=== PATIENT | female | born 2000 | race African-American/Black ===

== ENCOUNTER 2020-11-30 14:00 | Emergency (ER) | payer BC, SELFPAY ==
--- NOTE | ~2020-11-30 | CT_ITS ---
EXAMINATION: CT abdomen pelvis w con DATE: 11/30/2020 17:35 INDICATION: Right lower quadrant abdominal pain. TECHNIQUE: Computed tomography (CT) of the abdomen and pelvis was performed with 100 mL Omnipaque 350 intravenous contrast. Automated exposure control and iterative reconstruction technique were employe d. The dose-length product was 332.33 mGy-cm. COMPARISON: None. FINDINGS: The visualized portions of the lung bases are clear without pneumonia or pleural effusion. The heart size is normal. No pericardial effusion. The liver, gallbladder, spleen, pancreas, adrenal glands, and kidneys are normal. There are no dilated loops of bowel. The appendix is normal. There is a physiologic volume of fluid in the pelvis. There are no pathologically enlarged lymph nodes. There is a dominant follicle in right ovary. The bones are unremarkable. IMPRESSION: 1. No specific etiology for the patient's symptoms. Reviewed, dictated and finalized at location A.
[2020-11-30 14:07] VITALS: BP 117/75; PULSE 71; RESP 18; TEMP 36.4; O2SAT 100
[2020-11-30 14:21] LABS: Basophils Absolute Auto 0.1 K/mm3 (0.0-0.1); Basophils Percent Auto 0.8 % (0.2-1.2); Eosinophils Absolute Auto 0.3 K/mm3 (0-0.3); Eosinophils Percent Auto 4.3 % (0-4.4); Hematocrit 36.2 % (37.0-47.0); Hemoglobin 10.9 g/dL (12.0-15.0); Immature Granulocyte Absolute 0.02 K/mm3 (0.00-0.031); Immature Granulocyte Percent A 0.3 % (0-0.5); Lymphocytes Absolute Auto 1.94 K/mm3 (0.9-3.2); Lymphocytes Percent Auto 29.8 % (18.3-44.2); Mean Corpuscular HGB Conc 30.1 g/dl (32-36); Mean Corpuscular Hemoglobin 23.1 pg (26-34); Mean Corpuscular Volume 76.7 fl (80-100); Mean Platelet Volume 10.2 fl (7.4-10.4); Monocytes Absolute Auto 0.7 K/mm3 (0.1-0.6); Neutrophils Absolute Auto 3.6 K/mm3 (1.3-6.7); Neutrophils Percent Auto 54.8 % (45.5-73.1); Platelet Count Result 384 k/mm3 (150-375); Red Blood Count 4.72 M/mm3 (4.2-5.4); Red Cell Distribution Width 16.1 % (11.5-14.5); White Blood Count 6.5 K/mm3 (4.5-10.0)
[2020-11-30 14:35] LABS: Alanine Aminotransferase 9 U/L (4-35); Albumin Level 4.5 g/dL (3.5-5.1); Alkaline Phosphatase 80 U/L (38-126); Anion Gap 6 mmol/L (8-16); Aspartate Amino Transferase 22 U/L (14-36); Bilirubin,Total 0.5 mg/dL (0.2-1.3); Blood Urea Nitrogen 9 mg/dL (7-17); Calcium 9.4 mg/dL (8.4-10.2); Carbon Dioxide 27 mmol/L (22-30); Chloride 104 mmol/L (98-107); Estimated CRCL calculation 114 ml/min; Estimated Glomerular Filt Rate > 60; Glucose 102 mg/dL (65-110); Lipase 32 U/L (23-300); Potassium 3.8 mmol/L (3.4-5.0); Sodium 137 mmol/L (137-145)
[2020-11-30 14:39] LABS: Add Urine Microscopic? YES; Appearance Urine Clear (Clear); Bacteria Urine Trace /hpf; Bilirubin Urine Negative (Negative); Blood Urine Negative (Negative); Color Urine Yellow (Yellow); Glucose Urine UA Negative (Negative); Ketones Urine Negative (Negative); Leukocyte Esterase Ur Negative LEU/UL (Negative); Mucus Urine Few /lpf; Nitrate Urine Negative (Negative); Protein Urine 1+ mg/dL (Negative); Specific Grav Ur 1.024 (1.001-1.035); Squamous Epithelial Cell Urine Few /hpf (Few); WBC Urine 0-3 /hpf
--- NOTE | 2020-11-30 16:45 | ED.ABDPAIN ---
HPI - Abdominal Pain General Chief Complaint: Abdominal Pain Stated Complaint: vomiting Time Seen by Provider: 11/30/20 16:36 Source: patient Mode of arrival: ambulatory Limitations: no limitations History of Present Illness HPI narrative: This is a 20 year female that presents to the ER for nausea and vomiting. Reports she had several episodes of nausea and vomiting this morning. Reports she was evaluated at urgent care for this. Noted to have right lower quadrant tenderness, so sent to the ED for further evaluation. Does report intermittent sharp pains in the right lower quadrant. Denies fever, dysuria, hematuria, diarrhea, or hematochezia. Related Data Home Medications Medication Instructions Recorded Confirmed No Home Medications 11/30/20 11/30/20 Allergies Allergy/AdvReac Type Severity Reaction Status Date / Time No Known Allergies Allergy Verified 11/30/20 16:40 Review of Systems Review of Systems: CONSTITUTIONAL: Denies fever GASTROINTESTINAL: Reports abdominal pain, nausea, vomiting. Denies diarrhea. GENITOURINARY: Denies dysuria or hematuria. All systems reviewed & are unremarkable except as noted in HPI and below PMFSH Past Medical History Medical History (Updated 11/30/20 @ 18:30 by Barbra Farley PA-C) No active medical problems Social History Social History (Updated 11/30/20 @ 16:49 by Barbra Farley PA-C) Substance use: never Exam Narrative: GENERAL: Well-appearing, well-nourished, and in no acute distress. HEAD: Normocephalic, atraumatic. EYES: EOMI. CHEST: Clear to auscultation. No respiratory distress. No wheezes rales or rhonchi HEART: Regular rate and rhythm. No murmur heard. Normal peripheral pulses. ABDOMEN: Soft, nondistended, normal active bowel sounds. Tender to palpation in the RLQ, without guarding. No CVA tenderness EXTREMITIES: Normal range of motion. No edema. SKIN: Warm, dry, no rash. NEURO: No focal deficits. Alert and oriented x3. PSYCH: Normal mood and affect Course Vital Signs Vital signs: Vital Signs Temperature 97.6 F 11/30/20 14:07 Pulse Rate 71 11/30/20 14:07 Respiratory Rate 18 11/30/20 14:07 Blood Pressure 117/75 11/30/20 14:07 Pulse Oximetry 100 11/30/20 14:07 Temperature 97.6 F 11/30/20 14:07 Pulse Rate 71 11/30/20 14:07 Respiratory Rate 18 11/30/20 14:07 Blood Pressure 117/75 11/30/20 14:07 Pulse Oximetry 100 11/30/20 14:07 MDM - Abdominal Pain MDM Narrative Medical decision making narrative: Patient presents the emergency department for right lower quadrant abdominal pain, nausea and vomiting. She is afebrile and nontoxic-appearing. Her vitals are stable. CBC is without leukocytosis. Does show microcytic anemia with hemoglobin of 10.9. Metabolic panel and lipase without concerning findings. UA without evidence of infection. Bedside test negative. CT scan of the abdomen and pelvis is without acute findings. Patient was updated on case findings. Patient reports relief after IV Tylenol and fluids. She is stable and felt appropriate for further outpatient evaluation. She was given warnings to return the ER Lab Data Attestation: I reviewed the patient's lab results. Result diagrams: 11/30/20 14:13 11/30/20 14:13 Labs: Lab Results 11/30/20 11/30/20 11/30/20 Range/Units 14:13 14:13 14:17 WBC 6.5 (4.5-10.0) K/mm3 RBC 4.72 (4.2-5.4) M/mm3 Hgb 10.9 L (12.0-15.0) g/dL Hct 36.2 L (37.0-47.0) % MCV 76.7 L (80-100) fl MCH 23.1 L (26-34) pg MCHC 30.1 L (32-36) g/dl RDW 16.1 H (11.5-14.5) % Plt Count 384 H (150-375) k/mm3 MPV 10.2 (7.4-10.4) fl Immature Gran % (Auto) 0.3 (0-0.5) % Neut % (Auto) 54.8 (45.5-73.1) % Lymph % (Auto) 29.8 (18.3-44.2) % [place]oun % (Auto) 10.0 H (2.6-8.5) % Eos % (Auto) 4.3 (0-4.4) % Baso % (Auto) 0.8 (0.2-1.2) % Lymph # (Auto) 1.94 (0.9-3.2) K/mm3 [place]oun
[2020-11-30] MEDS: SODIUM CHLORIDE 0.9% IV 1,000 ML 999 ML IV CONT (17:47)
[2020-11-30 18:52] VITALS: BP 112/82; PULSE 70; RESP 20; O2SAT 100
== END 2020-11-30 18:53 | disposition home or self-care (01) ==
PROVIDERS: Emergency Provider Emergency Medicine
DX: R10.31 Right lower quadrant pain (principal)
CPT/HCPCS: 36415; 74177; 80053; 81001; 81025; 83690; 85025; 96361; 96374; 99284; J0131; J7030; Q9967

== ENCOUNTER 2022-01-03 17:38 | Emergency (ER) | payer BC, SELFPAY ==
[2022-01-03 17:40] VITALS: BP 125/85; PULSE 105; RESP 18; TEMP 36.7; O2SAT 100
--- NOTE | 2022-01-03 18:01 | ED.PREGNANCY ---
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 She first noticed the lesion about a week ago, since then it has been growing in size and becoming more tender. She was seen at urgent care facility, was told the lesion was too small to drain, and she was placed on Augmentin 3 days ago. States the area has grown and become more tender despite compliance with antibiotics. She denies any fevers or chills. States that she has a history of Bartholin cysts, has had them drained in the past, most recently 1 year ago. 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 Denies any fevers or chills, nausea or vomiting. She is not and denies chance of . Related Data Allergies Allergy/AdvReac Type Severity Reaction Status Date / Time No Known Allergies Allergy Verified 11/30/20 16:40 Review of Systems Review of Systems: Gen: Denies fevers or chills Eyes: Denies eye pain or visual change ENT: Denies congestion Respiratory: Denies shortness of breath or cough CV: Denies chest pain or palpitations GI: Denies abdominal pain nausea, emesis or diarrhea reports pain and swelling to right labia. Denies burning, urgency, frequency or hematuria Musculoskeletal: Denies back pain or muscle pain Neuro: Denies numbness, tingling, weakness or focal weakness Skin: Denies rash Except as documented, all other systems reviewed and negative PMFSH Past Medical History Medical History No active medical problems Social History Social History (Updated 11/30/20 @ 16:49 by Barbra Farley PA-C) Substance use: never Exam Narrative: APPEARANCE: Well appearing, no pain in distress, well-nourished. Head: Normocephalic and atraumatic. EYES: PERRLA/EOMI, conjunctivae clear NOSE: No nasal drainage EARS: External ear normal in appearance THROAT: Oropharynx is clear. Mucous membranes are moist. NECK: Supple. No adenopathy, no masses. RESPIRATORY: Airway patent, respirations nonlabored. Clear to auscultation bilaterally, no rales, rhonchi, wheezing. CARDIOVASCULAR: Regular rate and rhythm without murmurs, rubs, or gallops. ABDOMINAL: Normoactive bowel sounds. Soft, nontender, nondistended. No rebound tenderness or guarding. MUSCULOSKELETAL: Extremities are warm and well-perfused. Moves all extremities well. No edema. NEURO: Normal speech. No focal neurologic deficits. SKIN: Patient has a 3 x 4 cm area of fluctuance to her right labia majora at the 8 o'clock position that is tender to palpation. PSYCHIATRIC: Normal affect/mood. Course Vital Signs Vital signs: Vital Signs Temperature 98.0 F 01/03/22 17:40 Pulse Rate 105 H 01/03/22 17:40 Respiratory Rate 18 01/03/22 17:40 Blood Pressure 125/85 01/03/22 17:40 Pulse Oximetry 100 01/03/22 17:40 Oxygen Delivery Room Air 01/03/22 17:40 Temperature 98.0 F 01/03/22 17:40 Pulse Rate 90 01/03/22 19:35 Respiratory Rate 18 01/03/22 19:35 Blood Pressure 125/85 01/03/22 19:35 Pulse Oximetry 100 01/03/22 19:35 Oxygen Delivery Room Air 01/03/22 17:40 Procedures Abscess I/D bartholin's gland: Date of Incision: 01/03/22 Time of Incision: 19:04 Side (if applicable): right Local Anesthetic: lidocaine 1% Amount of anesthesia used (mL): 3 Technique: incised with #11 blade Amount of fluid expressed (mL): 20 Irrigation: No Packing used?: Word catheter I&D Results: Pus and Blood MDM - OB/Uterine Contractions MDM Narrative Medical decision making narrative: 21-year-old female here for evaluation of pain and swelling to her right labia majora with evidence of a 4 cm circular fluctuant mass. This lesion was drained and a Word catheter was placed. Histor
[2022-01-03] MEDS: IBUPROFEN 600 MG TABLET PO (18:23)
[2022-01-03 19:35] VITALS: BP 125/85; PULSE 90; RESP 18; O2SAT 100
== END 2022-01-03 19:36 | disposition home or self-care (01) ==
PROVIDERS: Emergency Provider General Practice
DX: N75.0 Cyst of Bartholin's gland (principal)
CPT/HCPCS: 56420; 99283; A9270

== ENCOUNTER 2022-04-23 09:37 | Emergency (ER) | payer BC, SELFPAY ==
--- NOTE | ~2022-04-23 | US_ITS ---
Pelvic ultrasound. Clinical History: First trimester , pelvic vein Technique: Realtime transabdominal and transvaginal scanning of the pelvis was performed. Color flow Doppler and Doppler spectral analysis were performed. Findings: The uterus is anteverted. The endometrial stripe has a thickness of 23 mm. No intrauterine gestational sac is identified. The right ovary measures 3.5 x 2.6 x 1.4 cm. No significant right ovarian or adnexal mass is seen. The left ovary measures 3.1 x 2.1 x 1.7 cm. No significant left ovarian or adnexal mass is seen. Vascular flow present in both ovaries on Doppler spectral analysis. There is no evidence of free fluid in the cul de sac. Impression: Positive test without intrauterine gestation. Differential diagnosis includes early normal , spontaneous , or nonvisualized ectopic . Correlate clinically. Continued follow up with serial beta hCG, and repeat ultrasound as warranted, is advised. Reviewed, dictated and finalized at [facility]. ORK SYSTEMS ANALYST Impression: Positive test without intrauterine gestation. Differential diagnosis includes early normal , spontaneous , or nonvisualized ectopic . Correlate clinically. Continued follow up with serial beta hCG, and repeat ultrasound as warranted, is advised.
[2022-04-23 09:54] VITALS: BP 135/80; PULSE 88; RESP 16; TEMP 36.8; O2SAT 97
--- NOTE | 2022-04-23 09:58 | ED.ABDPAIN ---
HPI - Abdominal Pain General Chief Complaint: Abdominal Pain Stated Complaint: 4 weeks /abd pain Time Seen by Provider: 04/23/22 09:50 History of Present Illness HPI narrative: 21-year-old female presents to the emergency room today for complaints of abdominal pain around the area of the umbilicus that has been off and on for the past week but is more frequent today. She was seen at the urgent care on Wednesday and had a positive test. They told her she was about 3 weeks based on her last menstrual period. She says that her last period was 1 month ago and it was normal. She denies having any vaginal discharge or vaginal bleeding. She reports that her bowel movements have been normal and denies any nausea or vomiting. No fever or chills. She has had some low back pain. She denies having any pain in the pelvic area. This is her first . Related Data Allergies Allergy/AdvReac Type Severity Reaction Status Date / Time No Known Allergies Allergy Verified 04/23/22 09:59 Review of Systems Review of Systems: CONSTITUTIONAL: Denies fever, chills, or sweats. CARDIOVASCULAR: Denies chest pain, palpitations, or edema. RESPIRATORY: Denies cough or dyspnea. GASTROINTESTINAL: as per HPI GENITOURINARY: Denies dysuria or hematuria. SKIN: Denies rash or itching. MUSCULOSKELETAL: Denies joint pain, or myalgia. Reports low back ache. NEUROLOGIC: Denies headache, numbness, dizziness, or weakness. PSYCHIATRIC: Denies anxiety or depression. PMFSH Past Medical History Medical History No active medical problems Social History Social History Smoking status: Never smoker Alcohol intake: current Substance use: never Substance use type: does not use Exam Narrative: GENERAL: Well-appearing, well-nourished, and in no acute distress. HEAD: Normocephalic, atraumatic. NECK: Supple. No adenopathy or masses. No carotid bruits or JVD CHEST: Clear to auscultation. No respiratory distress. No wheezes rales or rhonchi HEART: Regular rate and rhythm. No murmur heard. Normal peripheral pulses. ABDOMEN: Soft, nontender, nondistended, normal active bowel sounds. EXTREMITIES: Normal range of motion. No edema. SKIN: Warm, dry, no rash. NEURO: No focal deficits. Alert and oriented x3. PSYCH: Normal mood and affect. Course Course Emergency Course: 1210 Pt reports that pain is resolving since arrival. No new symptoms or concerns 1220 Discussed case with paintings conservator PLASTIC TOOL MAKER, Dr. Hou, instructs that patient can call office to schedule follow up. No immediate concerns. Vital Signs Vital signs: Vital Signs Temperature 36.8 C 04/23/22 09:54 Pulse Rate 88 04/23/22 09:54 Respiratory Rate 16 04/23/22 09:54 Blood Pressure 135/80 04/23/22 09:54 Pulse Oximetry 97 04/23/22 09:54 Oxygen Delivery Room Air 04/23/22 09:54 Temperature 36.8 C 04/23/22 09:54 Pulse Rate 88 04/23/22 09:54 Respiratory Rate 16 04/23/22 09:54 Blood Pressure 135/80 04/23/22 09:54 Pulse Oximetry 97 04/23/22 09:54 Oxygen Delivery Room Air 04/23/22 09:54 MDM - Abdominal Pain Differential Diagnosis Differential diagnosis: Likely abdominal pain, acute appendicitis, constipation, endometriosis and other (ectopic , miscarriage ) Lab Data Attestation: I reviewed the patient's lab results. 04/23/22 10:45 04/23/22 10:45 Labs: Lab Results 04/23/22 04/23/22 04/23/22 Range/Units 10:45 10:45 10:45 WBC 7.2 (4.5-10.0) K/mm3 RBC 4.68 (4.2-5.4) M/mm3 Hgb 10.2 L (12.0-15.0) g/dL Hct 34.3 L (37.0-47.0) % MCV 73.3 L (80-100) fl MCH 21.8 L (26-34) pg MCHC 29.7 L (32-36) g/dl RDW 16.7 H (11.5-14.5) % Plt Count 396 H (150-375) k/mm3 MPV 10.3 (7.4-10.4) fl Immature Gran % (Auto) 0.3 (0-0.5) % Neut % (Au
--- NOTE | 2022-04-23 10:07 | PC.NURSE ---
Patient going to ultrasound now
[2022-04-23 10:53] LABS: Basophils Percent Auto 0.6 % (0.2-1.2); Eosinophils Absolute Auto 0.5 K/mm3 (0-0.3); Eosinophils Percent Auto 6.5 % (0-4.4); Hematocrit 34.3 % (37.0-47.0); Hemoglobin 10.2 g/dL (12.0-15.0); Immature Granulocyte Absolute 0.02 K/mm3 (0.00-0.031); Immature Granulocyte Percent A 0.3 % (0-0.5); Lymphocytes Absolute Auto 1.94 K/mm3 (0.9-3.2); Lymphocytes Percent Auto 26.8 % (18.3-44.2); Mean Corpuscular HGB Conc 29.7 g/dl (32-36); Mean Corpuscular Hemoglobin 21.8 pg (26-34); Mean Corpuscular Volume 73.3 fl (80-100); Mean Platelet Volume 10.3 fl (7.4-10.4); Monocytes Absolute Auto 0.8 K/mm3 (0.1-0.6); Monocytes Percent Auto 10.7 % (2.6-8.5); Neutrophils Percent Auto 55.1 % (45.5-73.1); Platelet Count Result 396 k/mm3 (150-375); Red Blood Count 4.68 M/mm3 (4.2-5.4); Red Cell Distribution Width 16.7 % (11.5-14.5); White Blood Count 7.2 K/mm3 (4.5-10.0)
[2022-04-23 10:54] LABS: Appearance Urine Clear (Clear); Bilirubin Urine Negative (Negative); Blood Urine Negative (Negative); Color Urine Yellow (Yellow); Glucose Urine UA Negative (Negative); Ketones Urine Negative (Negative); Leukocyte Esterase Ur Negative LEU/UL (Negative); Nitrate Urine Negative (Negative); Protein Urine Negative (Negative); Urobilinogen Urine 0.2 mg/dL (<2.0)
[2022-04-23 11:01] LABS: Alanine Aminotransferase 14 U/L (6-35); Albumin Level 4.3 g/dL (3.5-5.1); Alkaline Phosphatase 68 U/L (38-126); Anion Gap 5 mmol/L (8-16); Aspartate Amino Transferase 23 U/L (14-36); Bilirubin,Total 0.5 mg/dL (0.2-1.3); Blood Urea Nitrogen 8 mg/dL (7-17); Calcium 8.6 mg/dL (8.4-10.2); Carbon Dioxide 27 mmol/L (22-30); Chloride 103 mmol/L (98-107); Estimated CRCL calculation 117 ml/min; Estimated Glomerular Filt Rate > 60; Glucose 98 mg/dL (65-110); Lipase 42 U/L (23-300); Potassium 3.6 mmol/L (3.4-5.0); Sodium 135 mmol/L (137-145)
--- NOTE | 2022-04-23 11:11 | PC.NURSE ---
report received from Titi DIAZ at this time including history and physical and plan of care
[2022-04-23 11:13] LABS: Hypochromasia 1+ (NORMAL); Platelet Estimate Increased (Adequate)
[2022-04-23 11:14] LABS: Anisocytosis 1+ (NORMAL); Ovalocytes 1+ (NORMAL)
[2022-04-23 11:15] LABS: Schistocytes None Seen (NORMAL)
[2022-04-23 11:18] LABS: Beta HCG Quantitative 307.25 mIU/ML
[2022-04-23 11:22] LABS: Mucus Urine Rare /lpf; RBC Urine 0-2 /hpf (0-2); Squamous Epithelial Cell Urine Rare /hpf (Few); WBC Urine 0-3 /hpf
[2022-04-23 11:27] LABS: Add Urine Microscopic? NO
[2022-04-23 12:33] VITALS: BP 132/76; PULSE 84; RESP 16; O2SAT 97
== END 2022-04-23 12:34 | disposition home or self-care (01) ==
PROVIDERS: Emergency Medicine; Emergency Provider Nurse Practitioner Family
DX: O26.891 Other specified pregnancy related conditions, first trimester (principal); R10.33 Periumbilical pain; Z3A.01 Less than 8 weeks gestation of pregnancy
CPT/HCPCS: 36415; 76817; 80053; 81003; 83690; 84702; 85025; 86900; 86901; 99284

== ENCOUNTER → 2022-05-20 10:29 | Outpatient (CLI) | payer BC, SELFPAY ==
--- NOTE | ~2022-05-20 | US_ITS ---
EXAMINATION: US OB <= 14 weeks fetus DATE: 05/20/2022 10:51 INDICATION: Evaluate viability TECHNIQUE: Real-time transabdominal and transvaginal obstetric ultrasound. FINDINGS: Ultrasound dated 04/23/2022 The uterus measures 10.4 x 7.4 x 8.7 cm. There is an intrauterine gestational sac, with pole id entified. The crown rump length measures 1.78 cm, which correlates with a estimated gestational age of 8 weeks 2 days. heart tones are identified measuring 176 BPM. IMPRESSION: 1. SL IUP with an EGA of 8 weeks, 2 days (EDC by current ultrasound of 12/28/2022). Reviewed, dictated and finalized at location B. TIC PRINTER IMPRESSION: 1. SL IUP with an EGA of 8 weeks, 2 days (EDC by current ultrasound of 12/29/19).
== END ==
PROVIDERS: PCP Advanced Practice Midwife; Visit Provider Advanced Practice Midwife
DX: O36.80X0 Pregnancy with inconclusive fetal viability, not applicable or unspecified (principal); Z3A.08 8 weeks gestation of pregnancy
CPT/HCPCS: 76801

== ENCOUNTER 2022-07-29 10:12 | Outpatient (CLI) | payer BC, MEDICAID, SELFPAY ==
--- NOTE | ~2022-07-29 | US_ITS ---
EXAMINATION: US OB /maternal detail DATE: 07/29/2022 10:55 INDICATION: anatomic survey. TECHNIQUE: Real-time ultrasound of the pelvis was performed. COMPARISON: Ultrasound 05/20/2022 FINDINGS: There is a single living fetus in vertex presentation. The placenta is posterior. heart rate i s 165 beats per minute (bpm). The amniotic fluid volume is subjectively normal. The following biometric data were obtained: Biparietal diameter (BPD): 4.2 cm; head circumference (HC): 16.1 cm; abdominal circumference (AC): 13 .6 cm; femur length (FL): 2.9 cm. These measurements are concordant. Estimated weight is 267 g +/- 40 g, which correlates with the 85th percentile when 12/28/22 is u sed as estimated date of delivery. As single measurements, these parameters are each equal to the following estimated gestational ages: BPD: 18 weeks 5 days. HC: 18 weeks 6 days. AC: 19 weeks 0 days. FL: 18 weeks 6 days. estimated gestational age based solely on measurements from this exam is 18 weeks 6 days +/- 1 weeks 2 days. The cerebral ventricles, cerebellum, cisterna magna, nuchal fold, and visualized portions of the spin e are normal. The heart is normal. The diaphragm, stomach, kidneys, and bladder are normal. There are two umbilical arteries to yield a 3-vessel cord. The cord insertion is normal. IMPRESSION: 1. Single living fetus in vertex presentation. 2. Estimated weight is 267 g +/- 40 g, which correlates with the 85th percentile when 12/28/22 is used as estimated date of delivery. This date was set by ultrasound on 05/20/2022. 3. Normal anatomic survey. Reviewed, dictated and finalized at location A. IMPRESSION: 1. Single living fetus in vertex presentation. 2. Estimated weight is 267 g +/- 40 g, which correlates with the 85th pe rcentile when 12/28/22 is used as estimated date of delivery. This date was set by ultrasound on 05/20/2022. 3. Normal anatomic survey.
== END 2022-07-29 10:13 | disposition home or self-care (01) ==
PROVIDERS: PCP Advanced Practice Midwife; Visit Provider Obstetrics & Gynecology Gynecology
DX: Z36.9 Encounter for antenatal screening, unspecified (principal)
CPT/HCPCS: 76805